=== PATIENT | female | born 1980 | race Caucasian/White ===

== ENCOUNTER 2017-03-08 14:56 | Emergency (ER) | payer SELFPAY ==
[2017-03-08 15:07] VITALS: BP 101/61
--- NOTE | 2017-03-08 17:13 | UC ---
Hand/Wrist HPI - HPI Summary HPI Summary: RIGHT 4TH FINGER WAS SLAMMED INTO A DOOR TODAY WHILE AT WORK. HAS SUBUNGUAL HEMATOMA, BRUISING AND PAIN. NO BREAK IN THE SKIN. - History Of Current Complaint Chief Complaint: UCUpperExtremity Stated Complaint: FINGER INJURY Time Seen by Provider: 03/08/17 15:32 Hx Obtained From: Patient Hx Last Menstrual Period: 12/30/16 Onset/Duration: Sudden Onset, Lasting Hours, Still Present Severity Initially: Mild Severity Currently: Mild Pain Intensity: 8 Pain Scale Used: 0-10 Numeric Character Of Pain: Sharp, Throbbing Aggravating Factor(s): Other - TOUCH Alleviating: Nothing Associated Signs And Symptoms: Positive: Swelling, Bruising Related History: Dominant Hand Right - Allergies/Home Medications Allergies/Adverse Reactions: Allergies Allergy/AdvReac Type Severity Reaction Status Date / Time Penicillins AdvReac Severe N/V Verified 03/08/17 15:01 nsaids Allergy cant Uncoded 03/08/17 15:01 breathe Home Medications: Home Medications Mometasone NASAL (NF) [Nasonex (NF)] 1 spray NASAL DAILY 03/08/17 [History Confirmed 03/08/17] PMH/Surg Hx/FS Hx/Imm Hx Previously Healthy: Yes - Surgical History Surgical History: Yes Surgery Procedure, Year, and Place: NASAL POLYP SURGERY - Family History Known Family History: Positive: Cardiac Disease, Hypertension, Diabetes - Social History Alcohol Use: None Substance Use Type: None Smoking Status (MU): Never Smoked Tobacco Review of Systems Constitutional: Negative Skin: Bruising Respiratory: Negative Cardiovascular: Negative Gastrointestinal: Negative Musculoskeletal: Edema All Other Systems Reviewed And Are Negative: Yes Physical Exam Triage Information Reviewed: Yes Appearance: Well-Appearing, No Pain Distress, Well-Nourished Vital Signs: Initial Vital Signs Temp 98.8 F 03/08/17 15:04 Pulse 66 03/08/17 15:04 Resp 16 03/08/17 15:04 BP 101/61 03/08/17 15:04 Pulse Ox 100 03/08/17 15:04 Vital Signs Reviewed: Yes Eyes: Positive: Conjunctiva Clear ENT: Positive: Hearing grossly normal Neck: Positive: Supple Respiratory: Positive: No respiratory distress, No accessory muscle use Abdomen Description: Positive: Soft Musculoskeletal: Positive: ROM Intact, Other: - RIGHT 4TH FINGER SLIGHTLY SWOLLEN DISTALLY WITH BRUISING ON FINGER PAD AND SUBUNGUAL HEMATOMA THAT DOES NOT EXTENT TO END OF FINGER BED. NAIL ATTACHED AND INTACT. Skin: Negative: rashes Hand/Wrist Course/Dx - Course Course Of Treatment: DISCUSSED WITH PT POSSIBILITY OF TUFT FRACTURE GIVEN MECHANISM OF INJURY. PT IS 9 WEEKS AND DECLINES XRAY. IN LIGHT OF THIS HAVE OPTED NOT TO PERFORM NAIL TREPHINATION THIS WOULD CONVERT AN EXISTING FRACTURE INTO AN OPEN FRACTURE AND PT DOES NOT WANT TO BE ON ANTIBIOTICS. FINGER WILL BE SPLINTED FOR PROTECTION. FOLLOW-UP NEEDED - Differential Dx/Diagnosis Provider Diagnoses: SUBUNGUAL HEMATOMA - RIGHT 4TH FINGER Discharge - Discharge Plan Condition: Stable Disposition: HOME Patient Education Materials: Subungual Hematoma (ED) Forms: *Work Release Referrals: Nupur Crouch MD [Primary Care Provider] - Additional Instructions: GIVEN YOUR EARLY YOU HAVE OPTED TO FOREGO XRAY TO EVALUATE FOR FRACTURE. AND WHILE DRAINING THE HEMATOMA WOULD LIKELY PROVIDE SOME PAIN RELIEF IT WOULD BE UNWISE TO PUT A HOLE IN YOUR NAIL WITHOUT CONFIRMING THERE IS NO FRACTURE. THE HEMATOMA WILL RESOLVE WITH TIME AND THE PAIN SHOULD IMPROVE. IF YOU HAVE PERSISTENT PAIN, THE NEED FOR XRAY CAN BE RE-EVALUATED. FINGER SPLINT FOR COMFORT AND PROTECTION.
== END 2017-03-08 16:10 | disposition home or self-care (01) ==
LOC: UCEAST 14:56
DX: W23.1XXA Caught, crushed, jammed, or pinched between stationary objects, initial encounter (principal)
CPT/HCPCS: 99211; G0463